=== PATIENT | female | born 1975 | race Caucasian/White ===

== ENCOUNTER 2019-11-10 21:15 | Emergency (ER) | payer BC ==
[~2019-11-10] VITALS: Ht 154.9 cm; Wt 82.1 kg
[2019-11-10 21:23] VITALS: Ht 154.9 cm; Wt 82.1 kg
[2019-11-10 22:13] LABS: BASOPHIL % 0.5 % (0-2); RED CELL DISTRIBUTION WIDTH 13.6 % (11.5-14.5)
[2019-11-10 22:14] LABS: PLATELET COUNT 404 x10^3mcL (130-400)
[2019-11-10 22:23] LABS: CALCIUM 8.8 mg/dL (8.5-10.1); CARBON DIOXIDE 27.9 mmol/L (21-32); CHLORIDE SERUM 104 mmol/L (98-107); CREATININE SERUM 0.9 mg/dL (0.6-1.0); GFR1 > 60 mL/min; GLUCOSE SERUM 95 mg/dL (74-106); SODIUM SERUM 141 mmol/L (136-145)
[2019-11-10 22:36] LABS: microscopic required? NO
[2019-11-10 22:45] LABS: urine erythrocyte NEGATIVE (NEGATIVE)
[2019-11-10 22:48] LABS: ALBUMIN 3.6 g/dL (3.4-5.0); ALKALINE PHOSPHATASE 85 U/L (46-116); ALT/SGPT 50 U/L (14-59); AST/SGOT 25 U/L (15-37); BILIRUBIN TOTAL 0.2 mg/dL (0.20-1.00); LIPASE 139 IU/L (73-393); TOTAL PROTEIN, SERUM 7.3 g/dL (6.4-8.2)
[2019-11-10 23:38] VITALS: BP 135/89
== END 2019-11-10 23:38 | disposition home or self-care (01) ==
LOC: ED 21:15
PROVIDERS: Student in an Organized Health Care Education/Training Program
DX: K76.0 Fatty (change of) liver, not elsewhere classified (principal); K08.89 Other specified disorders of teeth and supporting structures
CPT/HCPCS: 36415; J1885; J2405; Q0092